=== PATIENT | male | born 2000 | race Caucasian/White ===

== ENCOUNTER 2021-08-11 02:13 | Inpatient (IN) ==
[2021-08-11 02:41] LABS: Bilirubin,Urine Negative (Negative); Blood,Urine Negative (Negative); Clarity,Urine Clear (Clear); Color,Urine Light-Yellow (Yellow); Glucose,Urine (UA) Normal (Normal); Ketones,Urine Negative (Negative); Leukocyte Esterase,Urine Negative (Negative); Nitrite,Urine Negative (Negative); PH,Urine 5.5 pH Units (5.0-8.0); Protein,Urine Negative (Neg-Trace); Specific Gravity,Urine 1.015 (1.010-1.025); Urobilinogen,Urine Normal (Normal)
[2021-08-11 02:46] LABS: Basophils # 0.1 K/mcL (0.0-0.2); Basophils % 0.7 %; Eosinophils % 0.3 %; Hematocrit 40.8 % (37.5-50.1); Hemoglobin 14.7 g/dL (12.9-16.9); Immature Granulocytes % 0.3 % (0-4); Lymphocytes # 1.6 K/mcL (0.6-4.6); Lymphocytes % 20.9 %; Mean Corpuscular Hemoglobin 31.3 pg (28.0-33.3); Mean Platelet Volume 9.5 fL (9.4-12.4); Monocytes # 0.2 K/mcL (0.0-1.3); Neutrophils # 5.7 K/mcL (1.6-8.9); Platelet Count 245 K/mcL (140-400); Red Blood Count 4.69 M/mcL (4.19-5.50); Segmented Neutrophils % 74.8 %; White Blood Count 7.6 K/mcL (4.3-11.1)
[2021-08-11 02:52] LABS: Amphetamine Screen,Urine Negative ng/mL (Cutoff=1000); Barbiturate Screen,Urine Negative ng/mL (Cutoff=200); Benzodiazepines Screen,Urine Negative ng/mL (Cutoff=200); Cannabinoid Screen,Urine Negative ng/mL (Cutoff = 50); Cocaine Screen,Urine Negative ng/mL (Cutoff= 300); Opiate Screen,Urine Negative ng/mL (Cutoff=300); Phencyclidine Screen,Urine Negative ng/mL (Cutoff=25)
[2021-08-11 03:06] LABS: Acetaminophen < 10 mcg/mL (10-20); Alanine Aminotransferase 8 Units/L (7-52); Albumin 4.9 g/dL (3.5-5.7); Albumin/Globulin Ratio 1.6 (1.1-2.2); Alkaline Phosphatase 83 Units/L (34-104); Aspartate Amino Transferase 19 Units/L (13-39); BUN/Creatinine Ratio 9 (6-26); Bilirubin,Direct 0.1 mg/dL (0.0-0.2); Bilirubin,Indirect 0.3 mg/dL (0.0-1.0); Bilirubin,Total 0.4 mg/dL (0.3-1.0); Blood Urea Nitrogen 9 mg/dL (6-20); Calcium 9.6 mg/dL (8.6-10.3); Carbon Dioxide 22 mEq/L (23-29); Chloride 103 mEq/L (98-107); Ethanol 142 mg/dL (Less than 10); Globulin 3.1 g/dL (2.4-3.5); Glucose 96 mg/dL (70-105); Osmolality,Calculated 283 (280-300); Potassium 3.6 mEq/L (3.5-5.1); Salicylate < 2.5 mg/dL (15.0-30.0); Sodium 137 mEq/L (136-145); eGFR For African Americans > 60 (> 60); eGFR For Non-African Americans > 60 (> 60)
[2021-08-11] MEDS ORDERED: Metoclopramide 10 MG/2 ML VIAL IVP ONE (07:15)
[2021-08-11 13:19] LABS: Influenza A PCR Negative (Negative); Influenza B PCR Negative (Negative); Resp. Syncytial Virus PCR Negative (Negative)
[2021-08-11 13:33] LABS: SARS-CoV-2 by PCR (In House) Negative (Negative)
[2021-08-11] MEDS ORDERED: haloperidoL 5 MG TABLET PO PRN (13:46)
[2021-08-11] MEDS ORDERED: *HR* LORazepam 2 MG/ML VIAL IM PRN (13:46)
[2021-08-11] MEDS ORDERED: MOM Conc 10 ML UD.LIQ PO PRN (13:46)
[2021-08-11] MEDS ORDERED: Mag Hydrox/Al Hydrox/Simeth 30 ML UDC PO PRN (13:46)
[2021-08-11] MEDS ORDERED: hydrOXYzine pamoate 25 MG CAPSULE PO PRN (13:46)
[2021-08-11] MEDS ORDERED: Haloperidol Lactate 5 MG/ML VIAL IM PRN (13:46)
[2021-08-11] MEDS ORDERED: *HR* LORazepam 1 MG TABLET PO PRN (13:46)
[2021-08-11] MEDS ORDERED: Acetaminophen 325 MG TABLET PO PRN (13:46)
[2021-08-12] MEDS: traZODone 50 MG TABLET PO PRN (21:18)
[2021-08-13] MEDS: traZODone 50 MG TABLET PO PRN (20:21)
[2021-08-14] MEDS: traZODone 50 MG TABLET PO PRN (20:39)
[2021-08-15 10:05] VITALS: BP 112/71; PULSE 65; TEMP 98.2; O2SAT 99
== END 2021-08-15 14:30 | disposition home or self-care (01) | DRG 918 ==
LOC: EMEROOARM 02:13 → 1ANU 13:43
PROVIDERS: ADMIT Psychiatry & Neurology Psychiatry; ATTEND Psychiatry & Neurology Psychiatry